=== PATIENT | female | born 1980 | race Caucasian/White ===

== ENCOUNTER 2018-01-02 15:36 | Outpatient (CLI) | payer MEDICAID, SELFPAY ==
[2018-01-02 16:03] LABS: Abs Immature Grans 0.01 k/cumm (0.0-0.09); Absolute Basophil Count 0.05 k/cumm (0.0-0.2); Absolute Eosinophil Count 0.23 k/cumm (0.0-0.7); Absolute Lymphocyte Count 2.26 k/cumm (1.2-3.4); Absolute Monocyte Count 0.56 k/cumm (0.11-0.7); Absolute Neutrophil Count 7.21 k/cumm (1.2-6.7); Basophils % 0.5; Eosinophils % 2.2; HCT 44.2 % (36.0-46.0); HGB 14.8 g/dL (12.0-15.5); Immature Grans % 0.1; Lymphocytes % 21.9; Mean Corp. HGB Concentration 33.5 g/dL (32.0-36.0); Mean Corpuscular Hemoglobin 28.6 pg (27.0-33.0); Mean Corpuscular Volume 85.5 fL (80-95); Mean Platelet Volume 10.1 fL (8.0-11.0); Monocytes % 5.4; Neutrophils % 69.9; Platelet Count 293 x1000/uL (130-400); RBC 5.17 m/cumm (4.00-5.20); White Blood Cell Count 10.32 k/cumm (4.4-10.8)
--- NOTE | 2018-01-02 16:13 | DI.CT_ITS ---
SYMPTOMS/DIAGNOSIS: NEPHROLITHIASIS, RECURRENT, N20.0, GROSS HEMATURIA, R31.0, RIGHT FLANK PAIN, R10.9 CT SCAN OF THE ABDOMEN AND PELVIS: Renal colic CT was performed. Comparison is 11/19/16. The visualized lung bases are clear. Lack of IV contrast does limit evaluation of the abdominal and pelvic organs. The unenhanced visualized portions of the liver and spleen are unremarkable. The gallbladder is negative. No biliary ductal dilatation is seen. The pancreas and visualized portions of the adrenal glands are unremarkable. In the left kidney, there are several nonobstructing stones present, the largest measures 3 mm. No ureterolithiasis or hydronephrosis is seen on the left. In the right kidney, there is a 5 mm stone at the right ureterovesical junction causing moderate hydronephrosis. There are nonobstructing stones seen in the right kidney, the largest in the inferior pole, which measures 4 mm. The urinary bladder is intact. The reproductive organs are unremarkable save for an intrauterine device in good position. The abdominal aorta is of normal caliber. No significant abdominal or pelvic adenopathy, ascites or pneumoperitoneum is seen. Note is made of a small fat- containing umbilical hernia. The bowel shows no evidence of obstruction or inflammation. No findings to suggest an acute appendicitis are present. There is a normal air-filled appendix seen in the right lower quadrant. Mild degenerative changes are seen in the spine at the L5-S1 disc level. IMPRESSION: 1. A 5 mm right UVJ calculus causing moderate hydronephrosis. 2. Bilateral nephrolithiasis.
[2018-01-02 16:26] LABS: Bilirubin Negative (Negative); Blood Large (Negative); Clarity Clear; Glucose Negative (Negative); Ketones Trace mg/dL (Negative); Leukocyte Esterase Negative (Negative); Nitrite Negative (Negative); Specific Gravity 1.025 (1.005-1.025)
--- NOTE | 2018-01-02 16:38 | DI.VRAD_ITS ---
EXAM: CT Abdomen and Pelvis Without Intravenous Contrast EXAM DATE/TIME: 01/02/2018 4:11 PM CLINICAL HISTORY: 37 years old, female; Pain; Abdominal pain TECHNIQUE: Axial computed tomography images of the abdomen and pelvis without intravenous contrast. Coronal and sagittal reformatted images were created and reviewed. COMPARISON: CT RENAL COLIC WO CONTRAST 06/21/2013 5:17 AM FINDINGS: Lower thorax: No acute findings. ABDOMEN: Liver: Normal. No mass. Gallbladder and bile ducts: Gallbladder is contracted Pancreas: Normal. No ductal dilation. Spleen: Normal. No splenomegaly. Adrenals: Normal. No mass. Kidneys and ureters: 5 millimeter RIGHT UVJ calculus causes dilatation of the RIGHT ureter, and RIGHT collecting system. The RIGHT kidney is edematous and there is RIGHT perirenal stranding. Nonobstructing renal calculi bilaterally. Stomach and bowel: Low-attenuation bowel wall thickening is seen throughout the colon consistent with colitis. Differential diagnosis includes decompressed bowel.. Appendix: Normal appendix PELVIS: Bladder: Unremarkable as visualized. Reproductive: IUD in the uterus ABDOMEN and PELVIS: Intraperitoneal space: Normal. No free air. No significant fluid collection. Bones/joints: No acute fracture. No dislocation. Soft tissues: Unremarkable. Vasculature: Normal. No abdominal aortic aneurysm. Lymph nodes: Small retroperitoneal nodes IMPRESSION: 1. 5 millimeter RIGHT UVJ calculus causes dilatation of the RIGHT ureter, and RIGHT collecting system. The RIGHT kidney is edematous and there is RIGHT perirenal stranding. 2. Low-attenuation bowel wall thickening is seen throughout the colon consistent with colitis. Differential diagnosis includes decompressed bowel.. Dictated and Authenticated by: Juanis Joseph MD. Ordering:REGGIE MIKE MD
[2018-01-02 16:50] LABS: Bacteria Few HPF (Negative); C & S Indicated? No/Sq. Contamination; Casts Negative LPF (Negative); Crystals Negative HPF (Negative); Epithelial Cells Moderate HPF (Negative); Mucus Negative (Negative); RBC >50 (0-2)
[2018-01-02 18:54] LABS: Anion Gap 7.6 mmol/L (3-11); BUN 17 mg/dL (7-18); CO2 29.4 mmol/L (21.0-32.0); CREATININE 1.14 mg/dL (0.55-1.02); Calcium 8.9 mg/dL (8.5-10.1); Chloride 104 mmol/L (98-107); Estimated GFR 53.34 (mL/min/1.73m2); Glucose 82 mg/dL (70-100); Sodium 141 mmol/L (136-145)
== END 2018-01-02 15:56 ==
PROVIDERS: PCP Family Medicine; Visit Provider Family Medicine
DX: R31.0 Gross hematuria (principal); R10.9 Unspecified abdominal pain; N20.0 Calculus of kidney; R10.31 Right lower quadrant pain; N13.39 Other hydronephrosis
CPT/HCPCS: 36415; 80048; 74176; 81003; 81015; 85025

== ENCOUNTER 2018-01-13 08:19 | Emergency (ER) | payer MEDICAID, SELFPAY ==
[2018-01-13 08:26] VITALS: BP 124/110; PULSE 134; RESP 22; TEMP 37.4; O2SAT 98
--- NOTE | 2018-01-13 09:19 | ED.GENADUL_ITS ---
Discharge Plan Disposition Patient Disposition: HOME Condition: Good Discharge Details Chief Complaint: Laceration Clinical Impression: Laceration of left thumb, Laceration of left ring finger Primary Care Provider: Gracy Loyd ED Provider: Edy Granger Home Meds and New Rx's Prescriptions: No Action levonorgestrel [Mirena] 1 EACH intrauterine device 1 ea Intrauterine ONCE Qty: 1 RF: 0 epinephrine [EpiPen 2-Dominick] 0.3 MG/0.3 ML auto-injector 0.3 mg IM ONCE RF: 0 lisdexamfetamine [Vyvanse] 20 MG capsule 40 mg PO DAILY RF: 0 magnesium chloride [Slow-Mag] 71.5 MG tablet,delayed release (DR/EC) 71.5 mg PO BID RF: 0 bupropion HCl 300 MG tablet extended release 24 hr 300 mg PO DAILY RF: 0 zolmitriptan [Zomig] 5 MG spray,non-aerosol 5 mg NS ONCE Qty: 10 RF: 3 prochlorperazine maleate 5 MG tablet 1 - 2 tab PO Q8H PRN Qty: 60 RF: 1 ketorolac 10 MG tablet 10 mg PO Q6H PRN Qty: 10 RF: 3 vitamin B39-htkjd acid 1 EACH tablet 1 tab PO DAILY RF: 0 Discharge Instructions Instructions: Care For Your Stitches (ED), Finger Laceration (ED) Additional Instructions: Please return in the next 7-10 days for removal of your sutures. If you notice any redness, swelling, worsening pain, fever, or yellow-green discharge please return immediately for reevaluation. If you notice any persistent numbness or tingling, difficulty moving your fingers please return immediately. If you notice any worsening of your symptoms, or any new symptoms such as vomiting, diarrhea, fever, chills, shortness of breath, chest pain, numbness, weakness, or fainting , please return immediately to the emergency department for reevaluation.As always, it was a pleasure participating in your medical care today. Discharge Data Discharge Date/Time-TO BE ENTERED AT DEPARTURE: 01/13/18 09:23 Medical Decision Making This is a pleasant 37-year-old female who presents with a laceration on her left hand for both her thumb and her ring finger. She is ambidextrous. Patient cut her hand on an aluminum can which was clean, just open, and had been containing potatoes. After lacerating her hand she came to the ER immediately for reevaluation and laceration repair. Tetanus is up-to-date per the patient. Sensation is intact distal to the laceration site, including two- point discrimination. The area was anesthetized with a 50-50 mixture of 2% lidocaine and bupivacaine. After adequate anesthetization was achieved the area was vigorously cleaned and scrubbed with a chlorhexidine mixture, high- powered saline was then used for irrigation. No foreign bodies were noted. The area was then sutured with 5-0 Ethilon with 7 simple interrupted on the left thumb and 4 simple interrupted sutures on the ring finger. Patient tolerated the procedure well. She demonstrates good movement, no continued bleeding, no other abnormalities. We discussed suture removal here in the ED in the next 7-10 days, as well as red flags which to return the patient understands. I have extensively reviewed the treatment plan and discharge instructions with the patient. I have addressed all patient concerns at this time. The patient was made aware of what symptoms to monitor for that would warrant a return to the emergency department. Discussed the plan with the patient, they demonstrate verbal understanding and agreement with our assessment and plan at this time. HPI General Date/Time Provider Initiated Documentation: 01/13/18 09:15 . HPI Narrative: This is a 37-year-old female with no significant past medical history who presents today for evaluation of laceration on her hand. Patient states that she was opening a can of potatoes when she pulled at the lid and her hand slid and she developed a laceration over her left thumb and left ring finger. She immediately came to the ER for evaluation. She is ambidextrous, and does not have a dominant hand. She denies any numbness or tingling distal to the lacerations. She admits the pain worse with movement. She denies any blood thinner use. Patient states that her tetanus is up-to- date. She denies any other complaints at this time. She denies any recent surgeries. She denies any IV or illicit drug use. Related Data Home Medications Medication Instructions Recorded Confirmed vitamin A05-avaio acid 1 tab PO DAILY 10/13/14 03/27/17 epinephrine [EpiPen 2-Dominick] 0.3 mg IM ONCE 12/13/15 03/27/17 levonorgestrel [Mirena] 1 ea INTRAUTERINE ONCE #1 implant 12/13/15 03/27/17 lisdexamfetamine [Vyvanse] 40 mg PO DAILY 12/13/15 03/27/17 magnesium chloride [Slow-Mag] 71.5 mg PO BID 01/22/16 03/27/17 bupropion HCl 300 mg PO DAILY tab-cap 08/08/16 03/27/17 zolmitriptan [Zomig] 5 mg NS ONCE #10 spray 09/18/16 prochlorperazine maleate 1 - 2 tab PO Q8H PRN #60 tab-cap 10/16/16 ketorolac 10 mg PO Q6H PRN #10 tab-cap 11/12/16 Allergies Allergy/AdvReac Type Severity Reaction Status Date / Time sumatriptan [From Imitrex] Allergy Severe exacerbates Unverified 09/16/17 13:57 headache venom-honey bee Allergy Intermediate Anaphylaxsi Unverified 09/16/17 13:57 [bee venom (honey bee)] s bee Allergy Severe Anaphylaxsi Uncoded 03/27/17 12:02 s General Stated Complaint: Laceration ADELSO: 4 Review of Systems Review of Systems All systems reviewed & are unremarkable except as noted in HPI and below PFSH Medical History nephrolithiasis ovarian cyst Social History Smoking/Tobacco Use Status: Former Tobacco Use Surgical History section Exam Narrative Exam Narrative: 1.Const: Well-nourished, Well-developed, appearing stated age 2.Eyes: PERRL, no conjunctival injection, and symmetrical lids. 3.ENT: Atraumatic external nose and ears. Moist MM. Neck: Symmetric, trachea midline, No thyromegaly. 4.CVS: +S1/S2, No murmurs or gallops. Peripheral pulses 2+ and equal in all extremities. Brisk capillary refill in all extremities. 5.RESP: Unlabored respiratory effort. Clear to auscultation bilaterally. No wheezes rales or rhonchi 6.GI: Soft, Nontender/Nondistended, No hepatosplenomegaly. No guarding or rebound. 7.MSK: Normocephalic, Normal movement of all extremities, notable laceration on the patient's left thumb and ring finger. Patient demonstrates normal flexion extension abduction, abduction, movement of her fingers and thumb on her left hand. Normal sensation distal to her laceration sites, with two-point discrimination intact on the distal fingertips. Capillary refill is brisk 8.Skin: Warm, Dry. Patient demonstrates a 1.5 cm laceration on her left thumb that is perpendicular on her finger over the volar surface, just proximal to the interphalangeal joint as well as a 1.5 cm laceration in an L shape over her ring finger over the medial aspect, extending towards the nail. Sensation is intact distal to these components. 9.Neuro: scientific associate II-XII grossly intact. Sensation grossly intact, no focal neurologic deficits. 10.Psych: (AAO) x3. Appropriate mood and affect Course Vital Signs Temperature 37.4 C 01/13/18 08:26 Pulse 134 H 01/13/18 08:26 Respiratory Rate 22 01/13/18 08:26 Blood Pressure 124/110 H 01/13/18 08:26 Pulse Oximetry 98 01/13/18 08:26 Temperature 37.4 C 01/13/18 08:26 Temperature Source Temporal Artery Scan 01/13/18 08:26 Pulse 134 H 01/13/18 08:26 Respiratory Rate 22 01/13/18 08:26 Respiratory Effort 01/13/18 08:34 Blood Pressure 124/110 H 01/13/18 08:26 Blood Pressure Position Sitting 01/13/18 08:26 Pulse Oximetry 98 01/13/18 08:26 Oxygen Delivery Method Room Air 01/13/18 08:26 Oxygen Flow Rate 0 01/13/18 08:26 Pain Level 10 01/13/18 08:26
[2018-01-13 09:24] VITALS: BP 112/80; PULSE 88; RESP 18; TEMP 36.7; O2SAT 99
== END 2018-01-13 09:23 | disposition home or self-care (01) ==
LOC: ER 09:32
PROVIDERS: Emergency Provider Student in an Organized Health Care Education/Training Program; PCP Family Medicine
DX: S61.012A Laceration without foreign body of left thumb without damage to nail, initial encounter (principal); S61.215A Laceration without foreign body of left ring finger without damage to nail, initial encounter; W26.8XXA Contact with other sharp object(s), not elsewhere classified, initial encounter
CPT/HCPCS: 12002

== ENCOUNTER 2018-01-20 11:54 | Outpatient (CLI) | payer MEDICAID, SELFPAY ==
--- NOTE | 2018-01-20 10:43 | DI.US_ITS ---
SYMPTOM/DIAGNOSIS: CVA TENDER, N13.2 RENAL ULTRASOUND: Routine examination. Comparison CT scan 09/02/17. The right kidney measures 10.8 cm in length. No renal mass, calculus or hydronephrosis is identified. There is normal blood flow the right kidney. The left kidney measures 11.3 cm in length. No renal mass, calculus or hydronephrosis is seen. There is normal blood flow to the left kidney. The pre-void urinary bladder volume is 72 cc. The bladder wall appeared smooth. No intraluminal masses are present. The ureteral jets were not visualized during this examination. Post-void urinary bladder volume is 6 cc. IMPRESSION: No evidence of hydronephrosis. The previously noted right ureteral vesicular junction stone may be difficult to visualize sonographically. If there is continued concern a renal colic CT may be obtained. Plain film evaluation of stone location may also be considered.
== END 2018-01-20 12:14 ==
PROVIDERS: PCP Family Medicine; Visit Provider Nurse Practitioner Gerontology
DX: N13.2 Hydronephrosis with renal and ureteral calculous obstruction (principal); N20.0 Calculus of kidney
CPT/HCPCS: 76770

== ENCOUNTER 2018-01-20 12:58 | Outpatient (REF) | payer MEDICAID, SELFPAY ==
[2018-01-23 02:50] LABS: Source: Passed Stone
== END 2018-01-20 13:18 ==
LOC: LBN 12:58
PROVIDERS: PCP Family Medicine; Visit Provider Nurse Practitioner Gerontology
DX: N20.0 Calculus of kidney (principal)
CPT/HCPCS: 82360; 87086

== ENCOUNTER 2018-01-22 09:08 | Day surgery (SDC) | payer MEDICAID, SELFPAY ==
[2018-01-22] VITALS (7 sets, daily range): BP systolic 109–126; BP diastolic 56–86; PULSE 84–105; RESP 12–19; TEMP 36.5–36.7; O2SAT 97–100
[2018-01-22] MEDS: Lactated Ringers 1,000 ML 80 ML IV (09:45)
[2018-01-22] MEDS: CIPROFLOXACIN 400 MG/200 ML BAG 200 MG IVPB (09:45)
--- NOTE | 2018-01-22 10:57 | DI.RAD_ITS ---
SYMPTOMS/DIAGNOSIS: CALCULUS OF URETER C-ARM FLUOROSCOPY: Fluoroscopy Time: 25.3 sec, 4.61 mGy. C-arm fluoroscopy was utilized by Dr. Leger during retrograde ureterography. Hardcopies show bilateral retrograde ureterograms which are grossly unremarkable.
--- NOTE | 2018-01-22 10:57 | DI.RAD_ITS ---
SYMPTOMS/DIAGNOSIS: CALCULUS OF URETER C-ARM FLUOROSCOPY: Fluoroscopy Time: C-arm fluoroscopy was utilized by Dr. Leger during retrograde ureterography. Hardcopies show bilateral retrograde ureterograms which are grossly unremarkable.
[2018-01-22] MEDS: Lidocaine 2% Jelly 6 ML SYR (11:49)
--- NOTE | 2018-01-22 11:55 | W.PM.DSUDISC ---
Discharge Plan Disposition Patient Disposition: HOME Condition: Stable Discharge Details Reason For Visit: (R) UVJ STONE Attending Provider: Hugo Leger Primary Care Provider: Gracy Loyd Home Meds and New Rx's Prescriptions: No Action ciprofloxacin HCl [Cipro] 500 mg tablet 500 mg PO BID Qty: 10 RF: 0 levonorgestrel [Mirena] 1 EACH intrauterine device 1 ea Intrauterine ONCE Qty: 1 RF: 0 epinephrine [EpiPen 2-Dominick] 0.3 MG/0.3 ML auto-injector 0.3 mg IM ONCE RF: 0 lisdexamfetamine [Vyvanse] 20 MG capsule 40 mg PO BID RF: 0 bupropion HCl 300 MG tablet extended release 24 hr 300 mg PO DAILY RF: 0 zolmitriptan [Zomig] 5 MG spray,non-aerosol 5 mg NS ONCE Qty: 10 RF: 3 prochlorperazine maleate 5 MG tablet 1 - 2 tab PO Q8H PRN Qty: 60 RF: 1 ketorolac 10 MG tablet 10 mg PO Q6H PRN Qty: 10 RF: 3 vitamin Z09-uanim acid 1 EACH tablet 1 tab PO DAILY RF: 0 cephalexin [Keflex] 500 mg Capsule 500 mg PO QID RF: 0 prazosin 5 mg Capsule 5 mg PO HS RF: 0 naproxen 375 mg Tablet RF: 0 Discharge Instructions Additional Instructions: F/U about 4 weeks to review stone composition Activity:: Activity as Tolerated Diet:: As Tolerated Discharge Orders Discharge Orders: Discharge Order (Routine); Ordered 01/22/18 Ordered By: Hugo Leger
[2018-01-22] MEDS: Omnipaque 300 MG/ML 50 ML BTL (11:57)
[2018-01-22] MEDS: fentaNYL 100 MCG/2 ML VIAL IVP ×2 (12:13→12:48)
[2018-01-22] MEDS: Phenazopyridine 200 MG TAB PO (12:35)
--- NOTE | 2018-01-22 16:52 | ROE_ITS ---
DATE OF OPERATION: January 22, 2018 PREOPERATIVE DIAGNOSIS: Right ureteral stone. POSTOPERATIVE DIAGNOSIS: Right ureteral stone, recently passed into the bladder. PROCEDURE: Cystoscopy, evacuation of bladder stone, bilateral retrograde pyelogram. SURGEON: Hugo Leger M.D. ANESTHESIA: General. COMPLICATIONS: None. ESTIMATED BLOOD LOSS: Minimal. HISTORY: This is a 37-year-old woman who presented to an outside Emergency Room recently with right flank pain. She was identified as having a right distal ureteral stone as well as some nonobstructin g kidney stones. She passed a stone but continued to have right distal ureteral symptoms including p ain, frequency, and gross hematuria. She had a renal ultrasound which showed improvement of her hydr onephrosis but ureteral jets were not identified. She presents for retrograde pyelogram to see if th ere is any residual stone fragment remaining on the right. OPERATIVE REPORT: The patient was brought to the Operating Room on 01/22/18. After successful induc tion of general anesthesia, she was placed in the dorsal lithotomy position. Her genitalia was prepp ed and draped. A 22 [place] rigid cystoscope was passed through the urethra into the bladder. The bladder was inspec nomi using a 30-degree lens. Once the scope was passed within the bladder, a small stone fragment was identified adjacent to the r ight ureteral orifice. This was easily grasped in alligator forceps and removed. No additional ston e fragments were seen. We then did a retrograde pyelogram by passing a 6 [place] access catheter thro ugh the scope into the right ureteral orifice. A retrograde film was obtained by injecting Omnipaque through that access catheter under fluoroscopic guidance. No remaining filling defects were seen in the ureter. The right side drained promptly on a five-anjana te drainage film. Likewise, we did the left ureteral orifice. Again, the access catheter was engaged into the ureteral orifice and a retrograde film was obtained. The ureter and collecting system appeared normal, with no delay in drainage. There were some filling defects up in the renal calices which were expected gi tiff her previous CT scan. Based on today's examination I do not see any residual stone fragments on the right. I believe the f ragment that was located in her bladder was part of her symptom complex and I would expect that her s ymptoms will improve. The scope was removed. She tolerated the procedure well with no complications. She will follow up i n three to four weeks for her chemical analysis and a discussion regarding stone prevention. cc: Gracy Loyd M.D.
== END 2018-01-22 13:53 | disposition home or self-care (01) ==
PROVIDERS: PCP Family Medicine; Visit Provider Urology
PROC: (CPT 52310; principal; 2018-01-22 12:00)
DX: N20.1 Calculus of ureter (principal)
CPT/HCPCS: 52310; 74420; J0744; J1100; J1885; J2405; J3010; Q9967

== ENCOUNTER 2018-01-28 11:36 | Emergency (ER) | payer MEDICAID, SELFPAY ==
[2018-01-28 11:48] VITALS: BP 127/61; PULSE 109; RESP 16; TEMP 36.7; O2SAT 100
--- NOTE | 2018-01-28 12:08 | W.ED.GENAD ---
Discharge Plan Disposition Patient Disposition: HOME Condition: Good Discharge Details Chief Complaint: SutureRem Clinical Impression: Visit for suture removal, Digital nerve laceration, finger Primary Care Provider: Gracy Loyd ED Provider: Wilmer Gonzalez [employer] Meds and New Rx's Prescriptions: No Action ciprofloxacin HCl [Cipro] 500 mg tablet 500 mg PO BID Qty: 10 RF: 0 levonorgestrel [Mirena] 1 EACH intrauterine device 1 ea Intrauterine ONCE Qty: 1 RF: 0 epinephrine [EpiPen 2-Dominick] 0.3 MG/0.3 ML auto-injector 0.3 mg IM ONCE RF: 0 lisdexamfetamine [Vyvanse] 20 MG capsule 40 mg PO BID RF: 0 bupropion HCl 300 MG tablet extended release 24 hr 300 mg PO DAILY RF: 0 zolmitriptan [Zomig] 5 MG spray,non-aerosol 5 mg NS ONCE Qty: 10 RF: 3 prochlorperazine maleate 5 MG tablet 1 - 2 tab PO Q8H PRN Qty: 60 RF: 1 ketorolac 10 MG tablet 10 mg PO Q6H PRN Qty: 10 RF: 3 vitamin G41-uniyo acid 1 EACH tablet 1 tab PO DAILY RF: 0 cephalexin [Keflex] 500 mg Capsule 500 mg PO QID RF: 0 prazosin 5 mg Capsule 5 mg PO HS RF: 0 naproxen 375 mg Tablet RF: 0 Discharge Instructions Instructions: Finger Laceration (ED) Referrals: Alexey Taveras MD [ [facility] STAFF PHYSICIAN] - Larry Reich MD [ [facility] STAFF PHYSICIAN] - Medical Decision Making I was able to remove four sutures from the left ring finger and seven from the left thumb. She does have variance in two point discrimination to the thumb. Concerned for branch of the median nerve laceration to the left thumb. She can feel above the laceration but not below. I explained she should have orthopedic evaluation for the numbness. She is agreeable. Pt placed on ortho list and I provided number for f/u. HPI General Date/Time Provider Initiated Documentation: 01/28/18 11:53. Limitations to Documentation: no limitations. Information obtained by: patient. History of Present Illness 37 year old F presents to the emergency department with the chief complaint of suture removal, HPI Narrative: 37 y/o female here for suture removal. She hasd four sutures placed to the tip of her left ring finger and seven to the left thumb 15 days ago here in our ED. Denies any complications. It is tender still to touch and numbness below the laceration to the thumb. Related Data Home Medications Medication Instructions Recorded Confirmed vitamin M96-gvkcb acid 1 tab PO DAILY 10/13/14 01/28/18 epinephrine [EpiPen 2-Dominick] 0.3 mg IM ONCE 12/13/15 01/22/18 levonorgestrel [Mirena] 1 ea INTRAUTERINE ONCE #1 implant 12/13/15 01/28/18 lisdexamfetamine [Vyvanse] 40 mg PO BID 12/13/15 01/28/18 bupropion HCl 300 mg PO DAILY tab-cap 08/08/16 01/22/18 zolmitriptan [Zomig] 5 mg NS ONCE #10 spray 09/18/16 01/28/18 prochlorperazine maleate 1 - 2 tab PO Q8H PRN #60 tab-cap 10/16/16 01/28/18 ketorolac 10 mg PO Q6H PRN #10 tab-cap 11/12/16 01/28/18 ciprofloxacin 500 mg tablet 500 mg PO BID #10 tab 01/20/18 01/22/18 cephalexin [Keflex] 500 mg PO QID 01/21/18 01/22/18 prazosin 5 mg PO HS 01/21/18 01/28/18 naproxen 01/22/18 Previous Rx's Medication Instructions Recorded ciprofloxacin 500 mg tablet 500 mg PO BID #10 tab 01/20/18 Allergies Allergy/AdvReac Type Severity Reaction Status Date / Time sumatriptan [From Imitrex] Allergy Severe exacerbates Unverified 01/28/18 11:50 headache venom-honey bee Allergy Severe Anaphylaxsi Unverified 01/28/18 11:50 [bee venom (honey bee)] s bee Allergy Severe Anaphylaxsi Uncoded 01/28/18 11:50 s General Stated Complaint: SutureRem ADELSO: 5 Review of Systems Integumentary/Breasts Comments: suture removal PFSH Medical History nephrolithiasis ovarian cyst Social History Smoking/Tobacco Use Status: Current every day Surgical History section Exam Extrem Hand/finger images: 1. 7 sutures intact. Edges well approximate. No redness or drainage. 2. 4 sutures intact. Edges well approximate. No redness or drainage. Course Vital Signs Temperature 36.7 C 01/28/18 11:48 Pulse 109 H 01/28/18 11:48 Respiratory Rate 16 01/28/18 11:48 Blood Pressure 127/61 01/28/18 11:48 Pulse Oximetry 100 01/28/18 11:48 Temperature 36.7 C 01/28/18 11:48 Temperature Source Skin 01/28/18 11:48 Pulse 109 H 01/28/18 11:48 Respiratory Rate 16 01/28/18 11:48 Respiratory Effort 01/28/18 11:48 Blood Pressure 127/61 01/28/18 11:48 Blood Pressure Position Sitting 01/28/18 11:48 Pulse Oximetry 100 01/28/18 11:48 Oxygen Delivery Method Room Air 01/28/18 11:48 Oxygen Flow Rate 0 01/28/18 11:48 Pain Level 3 01/28/18 11:48
== END 2018-01-28 12:31 | disposition home or self-care (01) ==
LOC: ER 12:38
PROVIDERS: Emergency Provider Nurse Practitioner Family; PCP Family Medicine
DX: S61.012D Laceration without foreign body of left thumb without damage to nail, subsequent encounter (principal); S61.215D Laceration without foreign body of left ring finger without damage to nail, subsequent encounter; W26.8XXA Contact with other sharp object(s), not elsewhere classified, initial encounter; Z48.02 Encounter for removal of sutures

== ENCOUNTER 2018-06-04 15:05 | Emergency (ER) | payer MEDICAID, SELFPAY ==
[2018-06-04 15:29] VITALS: BP 143/91; PULSE 101; RESP 16; TEMP 36.7; O2SAT 100
--- NOTE | 2018-06-04 17:47 | NUR.NOTE ---
states she is leaving without being seen after being here for 1 hour. is now [facility] if [facility] will see her.Nursing Note:
--- NOTE | 2018-06-05 08:22 | ED.GENADUL_ITS ---
Discharge Plan Disposition Patient Disposition: LEFT WITHOUT BEING SEEN Discharge Details Chief Complaint: Nausea/Vomit/Diar Primary Care Provider: Gracy Loyd ED Provider: Edy Granger Discharge Data Discharge Date/Time-TO BE ENTERED AT DEPARTURE: 06/04/18 16:13 HPI General Date/Time Provider Initiated Documentation: 06/04/18 16:06 . HPI Narrative: The patient unfortunately left without being seen by a physician. Per the access staff patient unfortunately left roughly 1.5 minutes from the lobby prior to me going into the lobby to evaluate and assess her. [facility] for further evaluation on her own accord. Related Data Home Medications Medication Instructions Recorded Confirmed vitamin V09-yrbgt acid 1 tab PO DAILY 10/13/14 06/04/18 Mirena 1 ea INTRAUTERINE ONCE #1 implant 12/13/15 05/22/18 Vyvanse 40 mg PO BID 12/13/15 06/04/18 epinephrine [EpiPen 2-Dominick] 0.3 mg IM ONCE 12/13/15 06/04/18 bupropion HCl 150 mg PO DAILY tab-cap 08/08/16 06/04/18 prochlorperazine maleate 1 - 2 tab PO Q8H PRN #60 tab-cap 10/16/16 06/04/18 ketorolac 10 mg PO Q6H PRN #10 tab-cap 11/12/16 06/04/18 naproxen 01/22/18 05/22/18 ennwvdmbiu-kgyramyvtnklb-lfwhhbut 1 cap PO Q8H PRN #5 cap 05/22/18 06/04/18 50 mg-300 mg-40 mg capsule Previous Rx's Medication Instructions Recorded wvzcuhippo-htebnggcpnyqp-gezfwynn 1 cap PO Q8H PRN #5 cap 05/22/18 50 mg-300 mg-40 mg capsule Allergies Allergy/AdvReac Type Severity Reaction Status Date / Time sumatriptan [From Imitrex] Allergy Severe exacerbates Unverified 06/04/18 15:32 headache venom-honey bee Allergy Severe Anaphylaxsi Unverified 06/04/18 15:32 [bee venom (honey bee)] s bee Allergy Severe Anaphylaxsi Uncoded 06/04/18 15:32 s General Stated Complaint: Nausea/Vomit/Diar ADELSO: 3 PFSH Medical History nephrolithiasis ovarian cyst Surgical History section Social History Smoking/Tobacco Use Status: Current every day Drug use: Never Do you feel safe in your relationship?: Yes Female Reproductive History Menstrual control method: progestin IUCD History History 1 Para 1 Hx # Term Pregnancies Multiple births Hx # Pregnancies Ectopic pregnancies AB induced Hx Number of Living Children AB spontaneous Course Vital Signs Temperature 36.7 C 06/04/18 15:29 Pulse 101 H 06/04/18 15:29 Respiratory Rate 16 06/04/18 15:29 Blood Pressure 143/91 H 06/04/18 15:29 Pulse Oximetry 100 06/04/18 15:29 Temperature 36.7 C 06/04/18 15:29 Temperature Source Skin 06/04/18 15:29 Pulse 101 H 06/04/18 15:29 Respiratory Rate 16 06/04/18 15:29 Respiratory Effort Non-Labored 06/04/18 15:29 Blood Pressure 143/91 H 06/04/18 15:29 Blood Pressure Position Sitting 06/04/18 15:29 Pulse Oximetry 100 06/04/18 15:29 Oxygen Delivery Method Room Air 06/04/18 15:29 Oxygen Flow Rate 0 06/04/18 15:29 Pain Level 5 06/04/18 15:29
== END 2018-06-04 16:13 | disposition left before discharge ==
PROVIDERS: Emergency Provider Student in an Organized Health Care Education/Training Program; PCP Family Medicine
DX: Z53.21 Procedure and treatment not carried out due to patient leaving prior to being seen by health care provider (principal)